=== PATIENT | female | born 1960 | race Two or more races ===

== ENCOUNTER 2019-09-02 06:25 | Emergency (ER) | payer MEDICAID ==
[~2019-09-02] VITALS: Ht 165.1 cm; Wt 86.2 kg
[2019-09-02 06:30] VITALS: Ht 165.1 cm; Wt 86.2 kg
[2019-09-02 07:28] LABS: BASOPHIL % 0.4 % (0-2); PLATELET COUNT 355 x10^3mcL (130-400)
[2019-09-02 07:38] LABS: CARBON DIOXIDE 27.2 mmol/L (21-32); CHLORIDE SERUM 104 mmol/L (98-107); CREATININE SERUM 0.6 mg/dL (0.6-1.0); GFR1 > 60 mL/min; GLUCOSE SERUM 156 mg/dL (74-106); POTASSIUM SERUM 3.3 mmol/L (3.5-5.1); SODIUM SERUM 140 mmol/L (136-145)
[2019-09-02 07:50] LABS: ALKALINE PHOSPHATASE 104 U/L (46-116); ALT/SGPT 23 U/L (14-59); AST/SGOT 17 U/L (15-37); BILIRUBIN TOTAL 0.3 mg/dL (0.20-1.00); CHOLESTEROL 184 mg/dL (<200); LIPASE 75 IU/L (73-393); MAGNESIUM 1.9 mg/dL (1.8-2.4); T4(THYROXINE) 8.8 ug/dL (4.7-13.3); TOTAL PROTEIN, SERUM 6.7 g/dL (6.4-8.2)
[2019-09-02 07:52] LABS: ALBUMIN 3.2 g/dL (3.4-5.0); HDL CHOLESTEROL 62 mg/dL (40-60)
[2019-09-02 08:45] LABS: microscopic required? YES; urine erythrocyte 2+ (NEGATIVE)
[2019-09-02 08:53] LABS: AMPHETAMINE QUAL UR NONE DETECTED (See below)
[2019-09-02 11:29] VITALS: BP 148/69
== END 2019-09-02 11:29 | disposition home or self-care (01) ==
LOC: ED 06:25
PROVIDERS: Emergency Medicine
DX: R42 Dizziness and giddiness (principal); I10 Essential (primary) hypertension; R11.0 Nausea
CPT/HCPCS: 82962; J1200; J8597; Q0092